=== PATIENT | female | born 1980 | race African-American/Black ===

== ENCOUNTER 2024-08-18 19:50 | Outpatient (REF) | payer BC, SELFPAY | END 2024-08-18 19:51 | disposition home or self-care (01) | LOC: LAB 19:50 | PROVIDERS: Visit Provider Physician Assistant | DX: Z01.419 Encounter for gynecological examination (general) (routine) without abnormal findings (principal) | CPT/HCPCS: 87624; 88175 ==

== ENCOUNTER 2024-09-10 12:46 | Outpatient (OUT) | payer BC, SELFPAY ==
--- NOTE | 2024-09-10 12:51 | MM_ITS ---
Patient Name: PETE GOMEZ MR#: [id number] : 1980 Exam Date: 09/10/2024 Ordering Doctor: QIAN Morrow . RADIOLOGY REPORT PROCEDURE: MM TOMOSYNTHESIS SCREENING BI COMPARISON: MG MAMM SCREEN 3D BRIANNA CAD, 03/29/2022. INDICATIONS: Screening for malignant neoplasm Calculator Name NCI Breast Cancer Risk Assessment Tool 5 Year Breast Cancer Risk 0.60% Lifetime Breast Cancer Risk 7.30% Personal Breast Cancer No Personal Ovarian Cancer No Treatments None Family Cancers None LOCATION: [facility] BREAST COMPOSITION: The breasts are heterogeneously dense,which may obscure small masses. FINDINGS: DIAGNOSTIC CATEGORY 1--NEGATIVE. RIGHT BREAST: No significant suspicious finding. No significant change has occurred. LEFT BREAST: No significant suspicious finding. No significant change has occurred. RECOMMENDATIONS: ROUTINE MAMMOGRAM AND CLINICAL EVALUATION IN 12 MONTHS. PLEASE NOTE: A NORMAL MAMMOGRAM DOES NOT EXCLUDE THE POSSIBILITY OF BREAST CANCER. A CLINICALLY SUSPICIOUS PALPABLE LUMP SHOULD BE BIOPSIED. Dictated by: Farrukh Hazel M.D. on 09/10/2024 at 15:41 Approved by: Farrukh Hazel M.D. on 09/10/2024 at 15:43
== END 2024-09-10 12:47 | disposition home or self-care (01) ==
PROVIDERS: Visit Provider Physician Assistant
DX: Z12.31 Encounter for screening mammogram for malignant neoplasm of breast (principal)
CPT/HCPCS: 77063; 77067

== ENCOUNTER 2025-08-23 12:19 | Outpatient (REF) | payer BC, SELFPAY ==
--- OUTSIDE RECORDS SUMMARY | 2025-08-23 12:23 | XMS_ITS | CCD ---
Author Organization [facility] Care Team Providers Care Paleobotanist Name Role Phone CARLOS CLEANING Admitting Unavailable HERMILA, CARLOS Attending Unavailable CARLOS CLEANING Consulting Unavailable SORAYA, DR BAILEY Admitting Unavailable SORAYA, DR BAILEY Attending Unavailable SORAYA, DR BAILEY Consulting Unavailable SORAYA, DR BAILEY Admitting Unavailable SORAYA, DR BAILEY Attending Unavailable [place], DR DOLORES Forman Consulting Unavailable SORAYA, DR BAILEY Consulting Unavailable SORAYA, DR BAILEY Admitting Unavailable SORAYA, DR BAILEY Attending Unavailable Kia Sanders Unavailable KATARZYNA CASTANEDA Attending Unavailable Veronica Major MD Primary Care Provider Medications Current Medications Medication Drug Class(es) Dates Sig (Normalized) Sig (Original) dextromethorphan hydrobromide 15 mg / guaiFENesin 400 mg / pseudoephedrine hydrochloride 60 mg oral tablet (2 sources) alpha-Adrenergic Agonist, Uncompetitive E-miyuhq-C-aspartat e Receptor Antagonist, Sigma-1 Agonist Start: 02-03-2025 Capmist DM 60-15-400 MG tablet PLEASE SEE ATTACHED FOR DETAILED DIRECTIONS 02/03/2025 Active Problems Problem Classification Problem Date Documented Date Episodic/Chronic Immunizations and screening for infectious disease (2 sources) Encounter for screening for human papillomavirus (HPV); Translations: [Contact with and (suspected) exposure to other viral communicable diseases] Onset: 12-05-2021 Resolved: 12-05-2021 Episodic Nonmalignant breast conditions (1 source) Unspecified lump in the right breast, lower outer quadrant; Translations: [UNS LUMP IN RT BREAST LW OUTR QUAD] Onset: 04-02-2022 Episodic Other screening for suspected conditions (not mental disorders or infectious disease) (12 sources) Encounter for screening mammogram for malignant neoplasm of breast; Translations: [Encounter for screening for malignant neoplasm of cervix] Onset: 02-09-2022 Episodic Results Test Name Value Interpretation Reference Range Facil perla IGP,APTIMA HPV,AGE GDLNon AGE GDLN ACOG TESTING Note . [facility] Comment on above: TESTS RESULT FLAG UNITS REF RANGE LAB Clinician Provided Cytology Information Source.............Cervix;Endocervix No. of containers..01 ThinPrep Vial Age Algo ACOG Joy... FLAG LEGEND: L-Low Normal,H-High Normal,LL-Alert Low,HH-Alert High <-Panic Low,>-Panic High,A-Abnormal,AA-Critical Abnormal Performed at: 01 =[address] [place] [address] Radha Means MD, HPV APTIMA Negative Negative [facility] Healthcar e Comment on above: This nucleic acid amplification test det ects fourteen high- risk HPV types (16,18,31,33,35,39,45,51,52,56,58,59,66,68) without differentiation. Performed at: =[address] [id number] Equipment Installation Professional: Radha Means MD, Phone: [phone] Performed at: [address], [place] [id number] Equipment Installation Professional: Radha Means MD, Phone: [phone] IGP, APTIMA HPV, RFX 16/18,45 Note . [facility] Comment on above: TESTS RESULT FLAG UNITS REF RANGE LAB DIAGNOSIS: 02 NEGATIVE FOR INTRAEPITHELIAL LESION OR MALIGNANCY. Specimen adequacy: 02 Satisfactory for evaluation. No endocervical component is identified. Performed by: 02 Roseann Manzo, Senior Validation Engineer ([facility]) . 02 Note: Note 02 The Pap smear is a screening test designed to aid in the detection of premalignant and malignant conditions of the uterine cervix. It is not a diagnostic procedure and should not be used as the sole means of detecting cervical cancer. Both false-positive and false-negative reports do occur. Test Methodology: Note 02 This liquid based ThinPrep(R) pap test was screened with the use of an image guided system. HPV Genotype Reflex Note 02 Criteria not met, HPV Genotype not performed. FLAG LEGEND: L-Low Normal,H-High Normal,LL-Alert Low,HH-Alert High <-Panic Low,>-Panic High,A-Abnormal,AA-Critical Abnormal Performed at: [address] [place] [address] Radha Means MD, BRUSH-SPATULA CERVIX ENDOCERVIX [facility] S[facility] 3D BRIANNA CADon 03-29-2022 MG MAMM SCREEN 3D BRIANNA CAD Patient: PETE LOZANO Exam Date: 03/29/2022 : 1980 Gender:F Ordering : DR LYNN LIRA . Admission #: [id number] Family : Order #: [id number] CLICK HERE TO VIEW EXAM RADIOLOGY REPORT PROCEDURE: MAMMOGRAM SCREENING 3D BILATERAL CAD COMPARISON: None. INDICATIONS: Screening for malignant neoplasm of breast Calculator Name NCI Breast Cancer Risk Assessment Tool 5 Year Breast Cancer Risk 0.40% Lifetime Breast Cancer Risk 7.50% Personal Breast Cancer No Personal Ovarian Cancer No Treatments None Family Cancers None LOCATION: [facility] BREAST COMPOSITION: Heterogeneously dense,which may obscure small masses. FINDINGS: DIAGNOSTIC CATEGORY 0--INCOMPLETE: NEED ADDITIONAL IMAGING EVALUATION. Scattered benign-appearing lymph nodes are present. RIGHT BREAST: Partially circumscribed lobular mass measuring 1.3 x 0.9 x 1.5 cm lower outer quadrant right mid breast. Spot imaging and ultrasound follow-up is recommended. LEFT BREAST: No significant suspicious finding. RECOMMENDATIONS: ADDITIONAL MAMMOGRAPHIC VIEWS REQUIRED: RIGHT BREAST - spot compression ULTRASOUND: RIGHT BREAST PLEASE NOTE: A NORMAL MAMMOGRAM DOES NOT EXCLUDE THE POSSIBILITY OF BREAST CANCER. A CLINICALLY SUSPICIOUS PALPABLE LUMP SHOULD BE BIOPSIED. Dictated by: Dolores Ruiz MD on 03/29/2022 at 14:27 Approved by: Dolores Ruiz MD on 03/29/2022 at 14:30 [facility] PAP ACOG PANEL 2: 30 to 65on 02-15-2022 . . Normal [facility] Comment on above: Result Comment: Performed at: WB Performed By: #### [id number] #### [facility] [address] [address] [address] Kenya Anderson Age Gdln ACOG Testing 30-65 Normal [facility] Comment on above: Performed By: #### [id number] #### [facility] [address] [address] [address] Kenya Anderson DIAGNOSIS: Comment Normal [facility] Comment on above: Result Comment: NEGATIVE FOR INTRAEPITHE LIAL LESION OR MALIGNANCY. Performed at: WB Performed By: #### [id number] #### [facility] [id number] Kenya Anderson HPV Aptima Negative Normal Negative [facility] Comment on above: Result Comment: This nucleic acid amplif ication test detects fourteen high-risk HPV types (16,18,31,33,35,39,45,51,52,56,58,59,66,68) without differentiation. Performed at: =G Performed By: #### [id number] #### [facility] [address] [place] [address] Dr. Kenya Anderson Methodology: Comment Normal [facility] Comment on above: Result Comment: This liquid based ThinPr ep(R) pap test was screened with the use of an image guided system. Performed at: WB Performed By: #### [id number] #### [facility] [address] [place] [address] Dr. Kenya Anderson Note: Comment Normal [facility] Comment on above: Result Comment: The Pap smear is a scree varun test designed to aid in the detection of premalignant and malignant conditions of the uterine cervix. It is not a diagnostic procedure and should not be used as the sole means of detecting cervical cancer. Both false-positive and false-negative reports do occur. . Performed at: WB Performed By: #### [id number] #### [facility] [address] [place] [address] Dr. Kenya Anderson Performed by: Comment Normal [facility] Comment on above: Result Comment: Codie Samaniego, Cytotechnol ogist (ASCP) Performed at: WB Performed By: #### [id number] #### [facility] [address] [place] [address] Dr. Kenya Anderson Specimen adequacy: Comment Normal [facility] Comment on above: Result Comment: Satisfactory for evaluat ion. Endocervical and/or squamous metaplastic cells (endocervical component) are present. Performed at: WB Performed By: #### [id number] #### [facility] [address] [place] [address] Dr. Kenya Anderson COVID Quick Testingon 2021 Result Negative [facility] Other CULTURE THROATon 11-22-2019 CULTURE THROAT Culture Observations : Normal respiratory aroldo. Normal [facility] Comment on above: Performed By: #### SSCRN, THRTCX #### [facility] [address] [place] [address] Flaca [place] INFLUENZA A AND B AGon 11-22 INFLUANEGH SEE BELOW Normal [facility] Comment on above: Result Comment: Negative for Flu A prote in angiten. Infection due to Flu A cannot be ruled out. Flu A angiten in the sample may be below the detection limit of the test. Performed By: #### I NFLUAB #### [facility] [address] [place] [address] [place] INFLUENZA A AG Negative Normal NEGATIVE SEE COMMENT [facility] Comment on above: Performed By: #### INFLUAB #### [facility] [address] [place] [address] [place] INFLUENZA B AG Positive Normal NEGATIVE SEE COMMENT [facility] Comment on above: Performed By: #### INFLUAB #### [facility] [address] [place] [address] [place] INFLUPOSHB SEE BELOW Normal [facility] Comment on above: Result Comment: NOTE: Live attenuated in fluenzae vaccine viruses can cause a positive result for a rapid influenza diagnostic test if administered up to 7 days prior to rapid testing. Performed By: #### I NFLUAB #### [facility] [address] [place] [address] [place] INTERNAL CONTROLS Within Normal Limits Normal Within Normal Limits [facility] Comment on above: Performed By: #### INFLUAB #### [facility] [address] [place] [address] [place] STREPT SCREENon 11-22-2019 STREP SCREEN A Negative Normal NEGATIVE [facility] Comment on above: Performed By: #### SSCRN, THRTCX #### [facility] [address] [place] [address] [place] Vital Signs Date Time Vital Sign Value Performing Clinician Faci lity 08-23-2025 11:110400 Body height 167.6 cm Lynn Lira DO Work Phone: [facility] 08-23-2025 11:11-0400 Body mass index (BMI) [Ratio] 27.6 kg/m2 Lynn Soraya DO Work Phone: [facility] 08-23-2025 11:11-0400 Body weight 77.56 kg Lynn Soraya DO Work Phone: [facility] 08-23-2025 11:11-0400 Diastolic blood pressure 74 mm[Hg] Lynn Soraya DO Work Phone: [facility] 08-23-2025 11:11-0400 Systolic blood pressure 122 mm[Hg] Lynn Soraya DO Work Phone: [facility] 08-18-2024 10:11-0400 Body height 167.6 cm Katarzyna Foster PA Work Phone: [facility] 08-18-2024 10:11-0400 Body mass index (BMI) [Ratio] 28.79 kg/m2 Katarzyna Cristhian PA Work Phone: [facility] 08-18-2024 10:11-0400 Body weight 80.92 kg Katarzyna Foster PA Work Phone: [facility] 08-18-2024 10:11-0400 Diastolic blood pressure 58 mm[Hg] Katarzyna Foster PA Work Phone: [facility] 08-18-2024 10:11-0400 Systolic blood pressure 100 mm[Hg] Katarzyna Cristhian PA Work Phone: [facility] Healthcare Encounters Encounter Date Encounter Type Care Provider Facility Start: 08-23-2025 End: 08-23-2025 Bamboo flowsheet Lynn Soraya DO Work Phone: [facility] Start: 08-23-2025 End: 08-23-2025 Bamboo flowsheet Lynn Soraya DO Work Phone: [facility] Start: 08-23-2025 End: 08-23-2025 Patient encounter procedure Lynn Soraya DO Work Phone: [facility] Start: 08-23-2025 End: 08-23-2025 Periodic preventive med est patient 40-64yrs Lynn Soraya DO Work Phone: [facility] Comment on above: Well woman exam with routine gynecological exam; Encounter for screening mammogram for malignant neoplasm of breast Start: 08-18-2024 End: 08-18-2024 Bamboo flowsheet Katarzyna LAUGHLIN Work Phone: [facility] Start: 08-18-2024 End: 08-24-2024 Bamboo flowsheet Katarzyna LAUGHLIN Work Phone: [facility] Start: 08-18-2024 End: 08-24-2024 [facility] Result Encounter Katarzyna LAUGHLIN Work Phone: [facility] Unsolicited Start: 08-18-2024 End: 08-18-2024 Patient encounter procedure Katarzyna LAUGHLIN Work Phone: [facility] Work Phone: Start: 08-18-2024 End: 08-18-2024 Periodic preventive med est patient 40-64yrs Katarzyna LAUGHLIN Work Phone: [facility] Comment on above: Well woman exam with routine gynecological exam; Breast cancer screening by mammogram Start: 08-18-2024 End: 08-18-2024 ambulatory KATARZYNA CASTANEDA Not Available Start: 04-11-[address] LYNN LIRA Facility :[facility] Start: 03-29-2022 End: 03-30-[address] LYNN LIRA Facility:[facility] Start: 02-09-2022 End: 02-09-[address] LYNN LIRA Facility:[facility] Start: 12-05-2021 End: 12-05-2021 ambulatory Kia Sanders Other [facility] Other Start: 12-05-2021 Nursing evaluation o f patient and report Kia Sanders [facility] Start: 11-22-2019 End: 11-22-2019 Patient encounter procedure CARLOS CLEANING Facility:[facility] Procedures Date Procedure Procedure Detail Performing Clinician Start: 08-18-2024 IGP,APTIMA HPV,AGE GDLN Katarzyna LAUGHLIN Work Phone: Plan of Treatment Date Care Activity Detail Author Start: 08-23-2025 End: 10-23-2026 MG Breast - bilateral Screening Bilateral screening mammogram Imaging Routine Encounter for screening mammogram for malignant neoplasm of breast Expected: 08/23/2025 (Approximate), Expires: 10/23/2026 [facility] Work Phone: Comment on above: Expected: 08/23/2025 (Approximate), Expires: 10/23/2026 Start: 08-23-2025 End: 08-23-2025 Patient encounter procedure [facility] Comment on above: Arrived Start: 08-18-2024 End: 10-18-2025 MG Breast - bilateral Screening Bilateral screening mammogram Imaging Routine Breast cancer screening by mammogram Expected: 08/18/2024 (Approximate), Expires: 10/18/2025 [facility] Work Phone: Comment on above: Expected: 08/18/2024 (Approximate), Expires: 10/18/2025 Start: 08-18-2024 End: 08-18-2024 Patient encounter procedure 08/18/2024 10:00 AM EDT Office Visit [facility] [address] [place] [address] Katarzyna Castaneda PA [address] [place] [address] Arrived [facility] Comment on above: Arrived THIN PREP TIS PAP AN D HR HPV DNA THIN PREP TIS PAP AND HR HPV DNA Pathology and Cytology Routine Well woman exam with routine gynecological exam Ordered: 08/18/2024 [facility] Healthcare Comment on above: Ordered: 08/18/2024 THIN PREP TIS PAP AN D HR HPV DNA THIN PREP TIS PAP AND HR HPV DNA Pathology and Cytology Routine Well woman exam with routine gynecological exam Ordered: 08/23/2025 [facility] Comment on above: Ordered: 08/23/2025 Payers Date Payer Category Payer Blue [employer] Blue [employer] BCBS [id number] 2017 Unknown BCBS BCBS xxxxxx [id number] 2017-Present [phone] [address] [place] [id number] 1980 Unknown [id number] 1980 Unknown [id number] 1980 Unknown [id number] 1980 Unknown [id number] 1980 Unknown [id number] 1959 Unknown [id number] Social History Date Type Detail Facility Sex Assigned At [facility] Other Tobacco smoking status ALIS Tobacco smoking consumption unknown [facility] Start: 1980 Sex assigned at Female [facility] Start: 12-09-2023 Gender identity Identifies as female gender (finding) [facility] History of Present illness Narrative 08-23-2025 QIAN Mathew - 08/23/2025 11:00 AM EDT Note Date & Type Note Facility 08-23-2025 History of Presen t illness Narrative Reason for Appointment: Patient ID: Pete Lozano is a 45 y.o. female who presents for Gynecologic Exam Patient presents today for Annual Exam. MEDICATIONS Current Outpatient Medications Medication Instructions Capmist DM 60-15-400 MG tablet PLEASE SEE ATTACHED FOR DETAILED DIRECTIONS ALLERGIES No Known Allergies PROBLEMS Active Ambulatory Problems Diagnosis Date Noted No Active Ambulatory Problems Resolved Ambulatory Problems Diagnosis Date Noted No Resolved Ambulatory Problems No Additional Past Medical History HISTORY PAST MEDICAL HISTORY SOCIAL HISTORY No past medical history on file. Social History Tobacco Use Smoking status: Not on file Smokeless tobacco: Not on file Substance Use Topics Alcohol use: Not on file Drug use: Not on file FAMILY HISTORY No family history on file. SURGICAL HISTORY History reviewed. No pertinent surgical history. REVIEW OF SYSTEMS Review of Systems: Review of Systems Constitutional: Negative. HENT: Negative. Eyes: Negative. Respiratory: Negative. Cardiovascular: Negative. Gastrointestinal: Negative. Genitourinary: Negative. Musculoskeletal: Negative. Skin: Negative. Neurological: Negative. All other systems reviewed and are negative. Hematological: Negative. Endocrine: Negative. Allergic/Immunologic: Negative. OBJECTIVE Objective: Physical Exam Constitutional: Appearance: Normal appearance. Genitourinary: Right Adnexa: not tender and no mass present. Left Adnexa: not tender and no mass present. No cervical discharge. Breasts: Breasts are soft. Right: Normal. Left: Normal. HENT: Head: Normocephalic. Nose: Nose normal. Mouth/Throat: Mouth: Mucous membranes are moist. Cardiovascular: Rate and Rhythm: Normal rate. Pulmonary: Effort: Pulmonary effort is normal. Abdominal: General: Bowel sounds are normal. Palpations: Abdomen is soft. Musculoskeletal: General: Normal range of motion. Cervical back: Normal range of motion. Neurological: General: No focal deficit present. Mental Status: She is alert. Skin: General: Skin is warm and dry. Psychiatric: Mood and Affect: Mood normal. Vitals and nursing note reviewed. Exam conducted with a wheelchair van driver present. Vitals: Estimated body mass index is 27.6 kg/m as calculated from the following: Height as of this encounter: 5' 6 . Weight as of this encounter: 171 lb. BP: 122/74 Patient's last menstrual period was 08/16/2025 (exact date). ASSESSMENT & PLAN ICD-10-CM 1. Well woman exam with routine gynecological exam Z01.419 THIN PREP TIS PAP AND HR HPV DNA 2. Encounter for screening mammogram for malignant neoplasm of breast Z12.31 Bilateral screening mammogram Bilateral screening mammogram Annual Exam: Patient presents today for an annual exam. Patient states she is doing well and has no complaints. Pap was obtained without difficulty. Orders Placed This Encounter Procedures Bilateral screening mammogram Follow Up: Patient is to return in one year for annual unless needed otherwise. Documented by QIAN Mathew on behalf of: Lynn Lira DO documented in this encounter [facility] History of Present illness Narrative 08-18-2024 QIAN Mathew - 08/18/2024 10:00 AM EDT Note Date & Type Note Facility 08-18-2024 History of Presen t illness Narrative Reason for Appointment: Patient ID: Pete Lozano is a 43 y.o. female who presents for Well Women Visit Patient presents today for Annual Exam. MEDICATIONS No current outpatient medications ALLERGIES No Known Allergies PROBLEMS Active Ambulatory Problems Diagnosis Date Noted No Active Ambulatory Problems Resolved Ambulatory Problems Diagnosis Date Noted No Resolved Ambulatory Problems No Additional Past Medical History HISTORY PAST MEDICAL HISTORY SOCIAL HISTORY History reviewed. No pertinent past medical history. Social History Tobacco Use Smoking status: Not on file Smokeless tobacco: Not on file Substance Use Topics Alcohol use: Not on file Drug use: Not on file FAMILY HISTORY No family history on file. SURGICAL HISTORY History reviewed. No pertinent surgical history. REVIEW OF SYSTEMS Review of Systems: Review of Systems Constitutional: Negative. HENT: Negative. Eyes: Negative. Respiratory: Negative. Cardiovascular: Negative. Gastrointestinal: Negative. Genitourinary: Negative. Musculoskeletal: Negative. Skin: Negative. Neurological: Negative. All other systems reviewed and are negative. Hematological: Negative. Endocrine: Negative. Allergic/Immunologic: Negative. OBJECTIVE Objective: Physical Exam Constitutional: Appearance: Normal appearance. Genitourinary: Right Adnexa: not tender and no mass present. Left Adnexa: not tender and no mass present. No cervical discharge. Breasts: Breasts are soft. Right: Normal. Left: Normal. HENT: Head: Normocephalic. Nose: Nose normal. Mouth/Throat: Mouth: Mucous membranes are moist. Cardiovascular: Rate and Rhythm: Normal rate. Pulmonary: Effort: Pulmonary effort is normal. Abdominal: General: Bowel sounds are normal. Palpations: Abdomen is soft. Musculoskeletal: General: Normal range of motion. Cervical back: Normal range of motion. Neurological: General: No focal deficit present. Mental Status: She is alert. Skin: General: Skin is warm and dry. Psychiatric: Mood and Affect: Mood normal. Vitals and nursing note reviewed. Exam conducted with a wheelchair van driver present. Vitals: Estimated body mass index is 28.79 kg/m as calculated from the following: Height as of this encounter: 5' 6 . Weight as of this encounter: 178 lb 6.4 oz. BP: 100/58 Patient's last menstrual period was 08/08/2024. ASSESSMENT & PLAN ICD-10-CM 1. Well woman exam with routine gynecological exam Z01.419 THIN PREP TIS PAP AND HR HPV DNA 2. Breast cancer screening by mammogram Z12.31 Bilateral screening mammogram Bilateral screening mammogram Annual Exam: Patient presents today for an annual exam. Patient states she is doing well and has no complaints. Pap was obtained without difficulty. Orders Placed This Encounter Procedures Bilateral screening mammogram Follow Up: Patient is to return in one year for annual unless needed otherwise. Documented by Darline Bejarano LPN on behalf of: QIAN Mathew documented in this encounter [facility] Evaluation note 12-05-2021 Note Date & Type Note Facility 12-05-2021 Evaluation note Encounter Date Diagnosis Assessment Notes Dec, Contact with and (suspected) exposure to other viral communicable diseases (ICD-10 - Z20.828) Dec, Other Additional time spent conducting pre-visit phone call, screening for symptoms, instructions on social distancing, application and removal of PPE, and cleaning of examination room, equipment and supplies was preformed. Patient education given for testing methodology and results. Patient care instructions given in writting by [facility] Home document. [facility] Other Evaluation note Note Date & Type Note Facility Evaluation note Diagnosis Well woman exam with routine gynecological exam Routine gynecological examination Breast cancer screening by mammogram documented in this encounter [facility] Evaluation note Note Date & Type Note Facility Evaluation note Diagnosis Well woman exam with routine gynecological exam Routine gynecological examination Encounter for screening mammogram for malignant neoplasm of breast documented in this encounter [facility] Summary Purpose Family History No Family History Records FoundNo Family History Records FoundNo Family History Records Found Advance Directives No Advanced Directives Records FoundNo Advanced Directives Records FoundNo Advanced Directives Records Found Additional Source Comments INFORMATION SOURCE (unrecogn ized section and content) DATE CREATED AUTHOR 11/25/2019 [facility] DATE CREATED AUTHOR AUTHOR'S ORGANIZ ATION 04/11/2022 [facility] DATE CREATED AUTHOR AUTHOR'S ORGANIZ ATION 08/20/2024 [facility] dical Specialists EPIC REASON FOR VISIT (unrecogniz ed section and content) Reason Comments Well Women Visit Reason Comments Gynecologic Exam Care Teams (unrecognized sec tion and content) Paleobotanist Relationship Specialty Start Date End Date Veronica Major MD [address] [id number] PCP - General Family Medicine 08/18/24 Paleobotanist Relationship Specialty Start Date End Date Veronica Major MD [address] [place] [id number] PCP - General Family Medicine 08/18/24 Paleobotanist Relationship Specialty Start Date End Date Veronica Major MD [address] [id number] PCP - General Family Medicine 08/18/24 Paleobotanist Relationship Specialty Start Date End Date Veronica Major MD [address] [place] [phone] PCP - General Family Medicine 08/18/24 FOR RECORDS PERTAINING TO PATIENTS WHO ARE OR HAVE BEEN ENROLLED IN A CHEMICAL DEPENDENCY/SUBSTANCEABUSE PROGRAM, SOME INFORMATION MAY BE OMITTED. This clinical summary was aggregated from multiple sources. Caution should be exercised in using it in the provision of clinical care. This summary normalizes information from multiple sources, and as a consequence, information in this document may materially change the coding, format and clinical context of patient data. In addition, data may be omitted in some cases. CLINICAL DECISIONS SHOULD BE BASED ON THE PRIMARY CLINICAL RECORDS. [employer] (Inspect Manager) [facility]. provides no warranty or guarantee of the accuracy or completeness of information in this document.
[2025-08-27 11:08] LABS: Age Gdln ACOG Testing Note (.); IGP, Aptima HPV, rfx 16/18,45 Note (.)
== END 2025-08-23 12:20 | disposition home or self-care (01) ==
LOC: LAB 12:19
PROVIDERS: Visit Provider Obstetrics & Gynecology
DX: Z01.419 Encounter for gynecological examination (general) (routine) without abnormal findings (principal)
CPT/HCPCS: 87624; 88175

== ENCOUNTER 2025-12-01 14:27 | Outpatient (OUT) | payer BC, SELFPAY ==
--- OUTSIDE RECORDS SUMMARY | 2025-12-01 14:32 | XMS_ITS | CCD ---
Author Organization [facility] Care Team Providers Care Survey Workers Supervisor Name Role Phone CARLOS CLEANING Admitting Unavailable STR, CARLOS Attending Unavailable CARLOS CLEANING Consulting Unavailable SORAYA, DR BAILEY Admitting Unavailable SORAYA, DR BAILEY Attending Unavailable SORAYA, DR BAILEY Consulting Unavailable SORAYA, DR BAILEY Admitting Unavailable SORAYA, DR BAILEY Attending Unavailable WEST, DR DOLORES Fomran Consulting Unavailable SORAYA, DR BAILEY Consulting Unavailable SORAYA, DR BAILEY Admitting Unavailable SORAYA, DR BAILEY Attending Unavailable Kia Sanders Unavailable Veronica Major MD Primary Care Provider LYNN LIRA Attending Unavailable Veronica Major MD Primary Care Provider Medications Current Medications MedicationDrug Class(es)DatesSig (Normalized)Sig (Original)dextromethorphan hydrobromide 15 mg / guaiFENesin 400 mg / pseudoephedrine hydrochloride 60 mg oraltablet (3 sources)alpha-Adrenergic Agonist, Uncompetitive J-zsbeul-H-aspartate Receptor Antagonist, Sigma-1 AgonistStart: 98-61-5208Pkeubvx DM 60-15-400 MG tablet PLEASE SEE ATTACHED FOR DETAILED DIRECTIONS 02/03/2025 Active Problems Problem ClassificationProblemDateDocumented DateEpisodic/ChronicImmunizations and screening for infectious disease (2 sources)Encounter for screening for human papillomavirus (HPV); Translations: [Contact with and (suspected)exposure to other viral communicable diseases] Onset: 12-05-2021 Resolved: 97-72-5904XdowllfxVyrnnsuyxgpz breast conditions (1 source)Unspecified lump in the right breast, lower outer quadrant; Translations: [UNS LUMP IN RT BREAST LWOUTR QUAD]Onset: 55-74-1425IlutbzteJuuoo screening for suspected conditions (not mental disorders or infectious disease) (12 sources)Encounter for screening mammogram for malignant neoplasm of breast; Translations: [Encounter for screening for malignant neoplasm of cervix]Onset: 74-40-7718Vuijjekk Results Test NameValueInterpretationReference RangeFacilityIGP,APTIMA HPV,AGE GDLNon 76-87-0216XAV GDLN ACOG TESTINGNote.NOMS HealthcareComment on above:TESTS RESULT FLAG UNITS REF RANGE LAB Clinician Provided Cytology Information Source.............Cervix;Endocervix No. of containers..01 ThinPrep Vial Age Algo ACOG Joy... 30-65 FLAG LEGEND: L-Low Normal,H-High Normal,LL-Alert Low,HH-Alert High <-Panic Low,>-Panic High,A-Abnormal,AA-Critical Abnormal Performed at: 01 =[address] [place] [address] Radha Means MD, HPV APTIMANegativeNegativeNOMS HealthcareComment on above:This nucleic acid amplification test detects fourteen high- risk HPV types (16,18,31,33,35,39,45,51,52,56,58,59,66,68) without differentiation. Performed at: =[facility] [address], [place] [id number] Corporate Pilot: Radha Means MD, Phone: [phone] Performed at: - [facility], [place] [id number] Corporate Pilot: Radha eMans MD, Phone: [phone] IGP, APTIMA HPV, RFX 16/18,45Note.NOMS HealthcareComment on above:TESTS RESULT FLAG UNITS REF RANGE LAB DIAGNOSIS: 02 NEGATIVE FOR INTRAEPITHELIAL LESION OR MALIGNANCY. Specimen adequacy: 02 Satisfactory for evaluation. No endocervical component is identified. Performed by: Arnulfo Mast Speech Pathologist Assistant (ASCP) . 02 Note: Note 02 The Pap [...] <-Panic Low,>-Panic High,A-Abnormal,AA-Critical Abnormal Performed at: [address] [place] [address] Radha Means MD, BRUSH-SPATULA CERVIX ENDOCERVIX [facility] TOMOSYNTHESIS SCREENING BIon 75-92-7022[address] [address] Mammography Report Signed Patient: PETE LOZANO MR#: [id number] : 1980 Acct:[id number] Age/Sex: 44 / F ADM Date: 09/10/24 Loc: MAMMO Attending Dr: Katarzyna Morrow Ordering Physician: Katarzyna Morrow Results: Date of Service: 09/10/24 Follow Up: Procedure(s): MM tomosynthesis screening BI Accession Number(s): [id number] cc: Katarzyna Morrow; Physician,Non-Staff M.DJosef Patient Name: PETE LOZANO MR#: [id number] : 1980 Exam Date: 09/10/2024 Ordering Doctor: QIAN Morrow . RADIOLOGY REPORT PROCEDURE: MM TOMOSYNTHESIS SCREENING BI COMPARISON: MG MAMM SCREEN 3D BRIANNA CAD, 03/29/2022. INDICATIONS: Screening for malignant neoplasm Calculator Name NCI Breast Cancer Risk Assessment Tool 5 Year Breast Cancer Risk 0.60% Lifetime Breast Cancer Risk 7.30% Personal Breast Cancer No Personal Ovarian Cancer No Treatments None Family Cancers None LOCATION: [facility] BREAST COMPOSITION: The breasts are heterogeneously dense,which may obscure small masses. FINDINGS: DIAGNOSTIC CATEGORY 1--NEGATIVE. RIGHT BREAST: No significant suspicious finding. No significant change has occurred. LEFT BREAST: No significant suspicious finding. No significant change has occurred. RECOMMENDATIONS: ROUTINE MAMMOGRAM AND CLINICAL EVALUATION IN 12 MONTHS. PLEASE NOTE: A NORMAL MAMMOGRAM DOES NOT EXCLUDE THE POSSIBILITY OF BREAST CANCER. A CLINICALLY SUSPICIOUS PALPABLE LUMP SHOULD BE BIOPSIED. Dictated by: Farrukh Hazel M.D. on 09/10/2024 at 15:41 Approved by: Farrukh Hazel M.D. on 09/10/2024 at 15:43 Dictated By: Farrukh Hazel M.D. Signed By: 09/10/24 1545 DD/ 1544 TD/TT: Varnishing Unit Tool Setter:TBHRadiology, Radiologist, - 09/10/2024 [place] [address] Mammography Report Signed Patient: PETE LOZANO MR#: [id number] : 1980 Acct:[id number] Age/Sex: 44 / F ADM Date: 09/10/24 Loc: MAMMO Attending Dr: Katarzyna Morrow Ordering Physician: Katarzyna Morrow Results: Date of Service: 09/10/24 Follow Up: Procedure(s): MM tomosynthesis screening BI Accession Number(s): [id number] cc: Katarzyna Morrow; Physician,Non-Staff M.DJosef Patient Name: PETE LOZANO MR#: [id number] : 1980 Exam Date: 09/10/2024 Ordering Doctor: QIAN Morrow . RADIOLOGY REPORT PROCEDURE: MM TOMOSYNTHESIS SCREENING BI COMPARISON: MG MAMM SCREEN 3D BRIANNA CAD, 03/29/2022. INDICATIONS: Screening for malignant neoplasm Calculator Name NCI Breast Cancer Risk Assessment Tool 5 Year Breast Cancer Risk 0.60% Lifetime Breast Cancer Risk 7.30% Personal Breast Cancer No Personal Ovarian Cancer No Treatments None Family Cancers None LOCATION: [facility] BREAST COMPOSITION: The breasts are heterogeneously dense,which may obscure small masses. FINDINGS: DIAGNOSTIC CATEGORY 1--NEGATIVE. RIGHT BREAST: No significant suspicious finding. No significant change has occurred. LEFT BREAST: No significant suspicious finding. No significant change has occurred. RECOMMENDATIONS: ROUTINE MAMMOGRAM AND CLINICAL EVALUATION IN 12 MONTHS. PLEASE NOTE: A NORMAL MAMMOGRAM DOES NOT EXCLUDE THE POSSIBILITY OF BREAST CANCER. A CLINICALLY SUSPICIOUS PALPABLE LUMP SHOULD BE BIOPSIED. Dictated by: Farrukh Hazel M.D. on 09/10/2024 at 15:41 Approved by: Farrukh Hazel M.D. on 09/10/2024 at 15:43 Dictated By: Farrukh Hazel M.D. Signed By: 09/10/24 1545 DD/ 1544 TD/TT: Varnishing Unit Tool Setter: JOHNATHAN HealthcareRadiology Study observation (narrative)[facility] TOMOSYNTHESIS SCREENING BIOrdered By: Radiologist Radiology on 43-06-4810XGZL [employer] Work Phone: IGP,APTIMA HPV,AGE GDLNon 15-60-1776FVU GDLN ACOG TESTINGNote.NOMS HealthcareComment on above:TESTS RESULT FLAG UNITS REF RANGE LAB Clinician Provided Cytology Information Source.............Cervix;Endocervix No. of containers..01 ThinPrep Vial Age Algo ACOG Joy... 30- FLAG LEGEND: L-Low Normal,H-High Normal,LL-Alert Low,HH-Alert High <-Panic Low,>-Panic High,A-Abnormal,AA-Critical Abnormal Performed at: 01 =[address] [address] Radha Means MD, HPV APTIMANegativeNegativeNOMS HealthcareComment on above:This nucleic acid amplification test detects fourteen high- risk HPV types (16,18,31,33,35,39,45,51,52,56,58,59,66,68) without differentiation. Performed at: =[address] [id number] Corporate Pilot: Radha Means MD, Phone: [phone] Performed at: [address] [id number] Corporate Pilot: Radha Means MD, Phone: [phone] IGP, APTIMA HPV, RFX 16/18,45Note.NOMS HealthcareComment on above:TESTS RESULT FLAG UNITS REF RANGE LAB DIAGNOSIS: 02 NEGATIVE FOR INTRAEPITHELIAL LESION OR MALIGNANCY. Specimen adequacy: 02 Satisfactory for evaluation. No endocervical component is identified. Performed by: 02 Roseann Manzo, Information Technology Coordinator ([facility]) . 02 Note: Note 02 The Pap [...] Low,>-Panic High,A-Abnormal,AA-Critical Abnormal Performed at: [address] [facility] [address] [address] Radha Means MD, BRUSH-SPATULA CERVIX ENDOCERVIX CLINISYNCNOWashington University Medical CenterMG MAMM SCREEN 3D BRIANNA CADon 64-65-5993XN MAMM SCREEN 3D BRIANNA CADPatient: PETE LOZANOJosef Exam Date: 03/29/2022 : 1980 Gender:F Ordering : DR LYNN LIRA . Admission #: [id number] Family : Order #: [id number] CLICK HERE TO VIEW EXAM RADIOLOGY REPORT PROCEDURE: MAMMOGRAM SCREENING 3D BILATERAL CAD COMPARISON: None. INDICATIONS: Screening for malignant neoplasm of breast Calculator Name NCI Breast Cancer Risk Assessment Tool 5 Year Breast Cancer Risk 0.40% Lifetime Breast Cancer Risk 7.50% Personal Breast Cancer No Personal Ovarian Cancer No Treatments None Family Cancers None LOCATION: [facility] BREAST COMPOSITION: Heterogeneously dense,which may obscure small [...] by: Dolores Ruiz MD on 03/29/2022 at 14:30[facility] ShawOG PANEL 2: 30 to 65on 02-15-2022..NormalThe [facility] HealthComment on above:Result Comment: Performed at: WBPerformed By: #### [id number] #### [facility] [address] [place] [address] Dr. Kenya Morley Gdln ACOG Nowmwtd61-03SqawrdKheWilson HealthComment on above:Performed By: #### [id number] #### [facility] [address] [address] [address] Kenya AndersonDIAGNOSIS:CommentRegency Hospital Toledo on above: Result Comment: NEGATIVE FOR INTRAEPITHELIAL LESION OR MALIGNANCY. Performed at: WBPerformed By: #### [id number] #### [facility] [address] [place] [address] Dr. Kenya AndersonHPDasia AptimaNegativeNormalNegativeOhiohealth Dublin Methodist HospitalComment on above:Result Comment: This nucleic acid amplification test detects fourteen high-risk HPV types (16,18,31,33,35,39,45,51,52,56,58,59,66,68) without differentiation. Performed at: =GPerformed By: #### [id number] #### [facility] [address] [place] [address] Dr. Kenya AndersonMethodology:CommentRegency Hospital Toledo on above: Result Comment: This liquid based ThinPrep(R) pap test was screened with the use of an image guided system. Performed at: WBPerformed By: #### [id number] #### [facility] [address] [place] [address] Dr. Kenya AndersonNote:CommentNoMercy Hospital on above:Result Comment: The Pap smear is a screening test designed to aid in the detection of premalignant and malignant conditions of the uterine cervix. It is not a diagnostic procedure and should not be used as the sole means of detecting cervical cancer. Both false-positive and false-negative reports do occur. . Performed at: WBPerformed By: #### [id number] #### [facility] [address] [place] [address] Dr. Kenya AndersonPerformed by:CommentRegency Hospital Toledo on above: Result Comment: Codie Samaniego, Information Technology Coordinator (ASCP) Performed at: WBPerformed By: #### [id number] #### [facility] [address] [place] [address] Dr. Kenya AndersonSpecimen adequacy:CommentRegency Hospital Toledo on above:Result Comment: Satisfactory for evaluation. Endocervical and/or squamous metaplastic cells (endocervical component) are present. Performed at: WBPerformed By: #### [id number] #### [facility] [address] [place] [address] Dr. Kenya Pereyra Quick Testingon 65-62-9034YaftmiPhxzmeurFwzrs E Ink Other CULTURE THROATon 00-47-3702UOWRYLR THROATCulture Observations: Normal respiratory aroldo.NormalThe [facility]tering HealthComment on above:Performed By: #### SSCRN, THRTCX #### [facility] [address] [place] [address] Flaca KarenINFLUENZA A AND B AGon 82-49-2142XOEYAHRNXRCQG OhioHealthComment on above:Result Comment: Negative for Flu A protein angiten. Infection due to Flu A cannot be ruled out. FluA angiten in the sample may be below the detection limit of the test.Performed By: #### INFLUAB #### [facility] [address] [place] [address] Flaca KarenINFLUENZA A AGNegativeNormalNEGATIVE SEE COMMENTThe [facility] on above:Performed By: #### INFLUAB #### [facility] [address] [place] [address] Flaca KarenINFLUENZA B AGPositiveNormalNEGATIVE SEE COMMENTThe [facility] HealthComment on above:Performed By: #### INFLUAB #### [facility] [address] [place] [address] Flaca KarenINFLUPOSHBSEE [facility]Combrighton hospital on above: Result Comment: NOTE: Live attenuated influenzae vaccine viruses can cause a positive result for a rapid influenza diagnostic test if administered up to 7 days prior to rapid testing.Performed By: #### INFLUAB #### [facility] [address] [place] [address] Flaca KarenINTERNAL CONTROLSWithin Normal LimitsNormalWithin Normal LimitsThe [facility] System on above:Performed By: #### INFLUAB #### [facility] [address] [place] [address] Flaca KarenSTREPT SCREENon 33-91-7909BIHFS SCREEN ANegativeNormalNEGATIVEThe [facility] on above:Performed By: #### SSCRN, THRTCX #### [facility] [address] [place] [address] Flaca [place] Vital Signs Date TimeVital SignValuePerforming JnyhpcremJpiekqgj98-86-1673 11:11-0400Body jutqpn617.6 cmCorey Soraya DO Work Phone: [facility] HospitalVywxofryal46-85-4096 11:11-0400Body mass index (BMI) [Ratio]27.6 kg/u9Zrgqf Soraya DO Work Phone: [facility] HospitalIrzzrtwgde88-46-5081 11:11-0400Body .56 kgCorey Soraya DO Work Phone: [facility] HospitalSnbaxgokla52-60-7923 11:11-0400Diastolic blood vmegczlp72 mm[Hg]Lynn Soraya DO Work Phone: [address] [address]Rpspdwqlyk66-89-6411 11:11-0400Systolic blood khpiddvv019 mm[Hg]Lynn Soraya DO Work Phone: [address] [address]Ajzcnuybks15-28-7007 10:11-0400Body irbjeg681.6 Nancy Morrow PA Work Phone: [facility]' HospitalZweenpqvbh71-13-1149 10:11-0400Body mass index (BMI) [Ratio]28.79 kg/m2Amy Cristhian PA Work Phone: [address] [address]Nvmpkpoxrw58-06-6321 10:11-0400Body .92 kgAmy Cristhian PA Work Phone: [address] [address]Tbgpdpqbeo82-28-6929 10:11-0400Diastolic blood oswwwtmd18 mm[Hg]Katarzyna LAUGHLIN Work Phone: [address] [address]Nyanqgewbm25-03-4083 10:11-0400Systolic blood gmrvrakj781 mm[Hg]Katarzyna LAUGHLIN Work Phone: [facility] Healthcare Encounters Encounter DateEncounter TypeCare ProviderFacilityStart: 08-23-2025 End: 35-57-4614Ofvrcr flowsheetCorey Soraya DO Work Phone: NOGalion Community HospitalBethany OBGYNStart: 08-23-2025 End: 96-50-4502Ofinug flowsheetCorey Soraya DO Work Phone: NOGA Anshul OBGYNStart: 08-23-2025 End: 09-20-3178Mrbjihklv Result EncounterCorey Soraya DO Work Phone: noms External Department UnsolicitedStart: 08-23-2025 End: 57-37-4112Dsycdrh encounter procedureCorey Soraya DO Work Phone: noms HealthcareStart: 08-23-2025 End: 54-20-1795Jczxpins preventive med est patient 40-64yrsCorey Soraya DO Work Phone: noms Bethany OBGYNComment on above:Well woman exam with routine gynecological exam; Encounter for screening mammogram for malignant neoplasm of breastStart: 08-23-2025 End: 33-86-4206fvowulxpjtKAJRF FAZIONot AvailableStart: 09-10-2024 End: 27-31-6339Umytkzmdk Result EncounterAmy Cristhian LAUGHLIN Work Phone: noms External Department UnsolicitedStart: 09-10-2024 End: 04-80-1020Mfofyfpka Result EncounterAmy Cristhian LAUGHLIN Work Phone: noms External Department UnsolicitedStart: 08-18-2024 End: 75-42-6150Hsoyvf flowsheetKatarzyna LAUGHLIN Work Phone: noMS BCP OBStart: 08-18-2024 End: 72-31-1131Stxbsi flowsheetKatarzyna LAUGHLIN Work Phone: noms BCP OBStart: 08-18-2024 End: 07-81-0140Ssddrpxwa Result EncounterAmy Cristhian LAUGHLIN Work Phone: noMS External Department UnsolicitedStart: 08-18-2024 End: 06-95-9487Luwveda encounter procedureAmy Cristhian LAUGHLIN Work Phone: [facility] Work Phone: Start: 08-18-2024 End: 57-66-7472Doipyifl preventive med est patient 40-64yrsAmy Cristhian LAUGHLIN Work Phone: noms BCP OBComment on above:Well woman exam with routine gynecological exam; Breast cancer screening by mammogramStart: 02-65-9322ryhapxzgzqUI LYNN SORAYA Facility:Y5Cpskf: 03-29-2022 End: 17-16-1414svzcfgqqwkGW LYNN FAZIOFacility:M9Hyfmm: 02-09-2022 End: 57-95-3390cihyerihonGJ LYNN FAZIOFacility:Q6Gzdim: 12-05-2021 End: 80-45-2459yqmlsyurqbCfdpay Dymond Other Nort E Ink Other Start: 75-96-1420Kcqxwyv evaluation of patient and reportKia SandersFPG Urgent Care ClydeStart: 11-22-2019 End: 33-26-2523Gkpbayd encounter procedureMARIA STRUSFacility:H1 Procedures DateProcedureProcedure DetailPerforming ClinicianStart: 54-32-1417MRP,APTIMA HPV,AGE GDLNCorey Soraya DO Work Phone: Start: 44-87-0724TX TOMOSYNTHESIS SCREENING Elpidio LAUGHLIN Work Phone: Start: 58-84-1215HCI,APTIMA HPV,AGE GDLNKatarzyna LAUGHLIN Work Phone: Plan of Treatment DateCare ActivityDetailAuthorStart: 08-30-2026 End: 95-14-4191Yrktjsi encounter vciooyqgc79/29/2026 11:00 AM EDT Procedure Visit NOMKerline SHEEHAN [address] [place], [id number] Lynn Lira, DO [address] [place] [address] JOHNATHAN ROMANONStart: 08-23-2025 End: 37-95-3055ZQ Breast - bilateral ScreeningBilateral screening mammogram Imaging Routine Encounter for screening mammogram for malignant neoplasm of breast Expected: 08/23/2025 (Approximate), Expires: 10/23/2026[facility] Work Phone: comment on above:Expected: 08/23/2025 (Approximate), Expires: 10/23/2026Start: 08-23-2025 End: 18-98-2387Kvkctal encounter procedureNOSCRIPPS MEMORIAL [facility] OBComment on above:Arrived Start: 08-18-2024 End: 29-37-5670HS Breast - bilateral ScreeningBilateral screening mammogram Imaging Routine Breast cancer screening by mammogram Expected: 08/18/2024 (Approximate), Expires: 10/18/2025[facility] Work Phone: comment on above:Expected: 08/18/2024 (Approximate), Expires: 10/18/2025Start: 08-18-2024 End: 04-86-4315Zcntend encounter oastvwayu87/17/2024 10:00 AM EDT Office Visit NOM[facility] OB [address] [place] [phone] Katarzyna Morrow PA [address] [place] [address] ArrivedKAISER FOUNDATION [facility] OBComment on above:ArrivedTHIN PREP TIS PAP AND HR HPV DNATHIN PREP TIS PAP AND HR HPV DNA Pathology and Cytology Routine Well woman exam with routine gynecological exam Ordered: 08/18/2024NOGA HealthcareComment on above:Ordered: 08/18/2024THIN PREP TIS PAP AND HR HPV DNA THIN PREP TIS PAP AND HR HPV DNA Pathology and Cytology Routine Well woman exam with routine gynecological exam Ordered: 08/23/2025[facility] HealthcareComment on above:Ordered: 08/23/2025 Payers DatePayer CategoryPayerPolicy [id number] Member Subscriber Plan / Payer (Effective 2017-Present) Name: Pete Lozano Relation to Subscriber: Spouse Name: Quan Lozano Date of : 1979 (Work) Address: [address] [place] [id number] Payer ID: Not on file Type: Not on file Address: [address] [place] [id number] BCBS [id number] 2017-Present [phone] [address] [place] [id number] [id number] 2.840.1.4021[id number] 2..840.1.029912.3.57[id number] 2.0.1.945636.3.57[id number] 2..840.1.750571.3.579.[id number] 2.840.1.965573.3.579.2.[id number] Social History DateTypeDetailFacilitySex Assigned At [facility]Broad[facility] [place]([facility]) E Ink Other Tobacco smoking status NHISTobacco smoking consumption unknownGUNNISON VALLEY HOSPITAL HealthcareStart: 12-40-0414Jyy assigned at [facility] HealthcareStart: 87-29-1944Flnpry identityIdentifies as female gender (finding) [facility] HealthcareStart: 62-30-0616LrtJwwrdgXOLT Healthcare History of Present illness Narrative 08-23-2025 Note Date & SysnXaqjVpjhaxlr94-59-5196 History of Present illness Narrative* QIAN Mathew - 08/23/2025 11:00 AM EDT Reason for Appointment: Patient ID: Pete Lozano [...] nursing note reviewed. Exam conducted with a clerical office worker present. Vitals: Estimated body mass index is [...] of: Lynn Lira DO documented in this encounterNOGA Healthcare History of Present illness Narrative 08-18-2024 Note Date & IvdwYirrScvvdcef68-73-8205 History of Present illness Narrative* QIAN Mathew - 08/18/2024 10:00 AM EDT Reason for Appointment: Patient ID: Pete Lozano [...] nursing note reviewed. Exam conducted with a clerical office worker present. Vitals: Estimated body mass index is [...] behalf of: QIAN Mathew documented in this encounterGUNNISON VALLEY HOSPITAL Healthcare Evaluation note 12-05-2021 Note Date & ZzkuGsouJaaxqzjp62-29-2018 Evaluation note* Encounter Date Diagnosis Assessment Notes Treatment Notes Treatment Clinical Notes Dec, Contact with and (marquis spected) exposure to other viral communicable diseases (ICD-10 - Z20.828) Dec,ther Additional time spent conducting pre-visit phone call, screening for symptoms, instructions on social distancing, application and removal of PPE, and cleaning of examination room, equipment and supplies was preformed. Patient education given for testing methodology and results. Patient care instructions given in writting by [facility] Care At Home document. [employer] Other Evaluation note Note Date & TypeNoteFacilityEvaluation note* Diagnosis Well woman exam with routine gynecological exam Routine gynecological examination Breast cancer screening by mammogram documented in this encounter [facility] Healthcare Evaluation note Note Date & TypeNoteFacilityEvaluation note* Diagnosis Well woman exam with routine gynecological [...] and content) DATE CREATED AUTHOR 11/25/2019 [facility] DATE CREATED AUTHOR AUTHOR'S ORGANIZ ATION 04/11/2022 [facility] DATE CREATED AUTHOR AUTHOR'S ORGANIZ ATION 08/24/2025 [facility] EPIC REASON FOR VISIT (unrecogniz ed section and content) ReasonCommentsWell Women VisitReasonCommentsGynecologic Exam Care Teams (unrecognized sec tion and content) Team MemberRelationshipSpecialtyStart DateEnd Date Veronica Major MD [address] [place] [address] PCP - [facility] Medicine08/18/24Team MemberRelationshipSpecialtyStart DateEnd Date Veronica Major MD [address] [address] PCP - [facility]08/18/24Team MemberRelationshipSpecialtyStart DateEnd Date Veronica Major MD [address] [address] [facility] - [facility]08/18/24Team MemberRelationshipSpecialtyStart DateEnd Date Veronica Major MD [address] [place] [address] PCP - [facility]08/18/24 FOR RECORDS PERTAINING TO PATIENTS WHO ARE [...] BE BASED ON THE PRIMARY CLINICAL RECORDS. [employer] [facility]. provides no warranty or guarantee of the accuracy or completeness of information in this document.
--- NOTE | 2025-12-01 14:33 | MM_ITS ---
Patient Name: PETE GOMEZ MR#: [id number] : 1980 Exam Date: 12/01/2025 Ordering Doctor: DR LYNN PETER . RADIOLOGY REPORT PROCEDURE: MM TOMOSYNTHESIS SCREENING BI COMPARISON: MM TOMOSYNTHESIS SCREENING BI, 09/10/2024. MG MAMM SCREEN 3D BRIANNA CAD, 03/29/2022. INDICATIONS: Screening Calculator Name NCI Breast Cancer Risk Assessment Tool 5 Year Breast Cancer Risk 0.60% Lifetime Breast Cancer Risk 7.30% Personal Breast Cancer No Personal Ovarian Cancer No Treatments None Family Cancers None LOCATION: [facility] BREAST COMPOSITION: There are scattered areas of fibroglandular density. FINDINGS: DIAGNOSTIC CATEGORY 1--NEGATIVE. RIGHT BREAST: No significant suspicious finding. LEFT BREAST: No significant suspicious finding. RECOMMENDATIONS: ROUTINE MAMMOGRAM AND CLINICAL EVALUATION IN 12 MONTHS. Dictated by: Destin Hernandez MD on 12/01/2025 at 15:38 Approved by: Destin Hernandez MD on 12/01/2025 at 15:40
--- OUTSIDE RECORDS SUMMARY | 2025-12-01 14:33 | XMS_ITS | Clinical Summary ---
Author Organization [facility] Address [address] [place] [address] [place] [address] Care Team Providers Care Commercial Sales Consultant Name Role Phone Veronica Major MD Primary Care Provider [phone] Allergies No known active allergies Medications MedicationSigDispense QuantityRefillsLast FilledStart DateEnd DateStatus Capmist DM 60-15-400 MG tablet PLEASE SEE ATTACHED FOR DETAILED GFTMRDEAEC27/05/2025Active Encounters DateTypeDepartmentCare LtwlTcmfndnvqur82/07/2025Orders Only [facility] [address] [place] [address] [place] [address] Rody Jay MA from Last 3 Months Social History Tobacco UseTypesPacks/DayYears UsedDateSmoking Tobacco: Never Assessed CommentsNoSex and Gender InformationValueDate RecordedSex Assigned at Zmakdh2112/09/2023 9:30 AM ESTLegal XdrSbgqmt89/15/2023 11:47 PM EDTGender EtyeamwpNlpgcc83/08/2024 9:30 AM ESTSexual OrientationNot on file Last Filed Vital Signs Vital SignReadingTime TakenCommentsBlood Aqbzbcrg224/7409 11:11 AM EDT Pulse--Temperature--Respiratory Rate--Oxygen Saturation--Inhaled Oxygen Concentration--Ilasof81.6 kg (171 lb)08/23/2025 11:11 AM OLVLdlaua035.6 cm (5' 6 )08/23/2025 11:11 AM EDTBody Mass Index27.609 11:11 AM EDT Plan of Treatment DateTypeDepartmentCare Team (Latest Contact Info)Qgrxeykypkb97/29/2026 11:00 AM EDTProcedure Visit [facility] [address] [facility] [place] [address] Dave Lira DO [address] [place] [address] Insurance Care Teams Team MemberRelationshipSpecialtyStart DateEnd Veronica Major MD [address] [place] [address] PCP - GeneralFamily Medicine08/18/24
== END 2025-12-01 14:28 | disposition home or self-care (01) ==
LOC: MAMMO 14:30
PROVIDERS: PCP Family Medicine; Visit Provider Obstetrics & Gynecology
DX: Z12.31 Encounter for screening mammogram for malignant neoplasm of breast (principal)
CPT/HCPCS: 77063; 77067